=== PATIENT | female | born 1995 | race Caucasian/White ===

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

== ENCOUNTER 2017-07-18 20:08 | Emergency (ER) | payer BC, OTHER ==
[~2017-07-18] VITALS: Ht 160 cm; Wt 60.8 kg
[~2017-07-18 20:08] MED LIST: IBUPROFEN600 MG ORAL
[2017-07-18 20:20] VITALS: BP_SYST 124; BP_SYST 131; BP_DIAS 80; BP_DIAS 84
[2017-07-18] MEDS ORDERED: CLARITIN10 M2 ORAL (20:30)
--- NOTE | 2017-07-18 21:15 | Emergency Room Report ---
History of Present Illness General Chief Complaint: Earache Source: Patient Present Illness HPI Patient is a 22-year-old female who presented for earache intermittently for the past 2 days. Patient reported having prior history of seasonal allergies. She stated that pain began after some water was remaining in her ear after showering. She denies any fever. She denies sore throat. Patient reported having intermittent symptoms. She denies hearing loss or ringing in ears. Allergies: Coded Allergies: No Known Allergies (Unverified , 05/15/14) Patient History Past Medical History: see triage record Last Menstrual Period: 06/30/17 Now: No Reviewed Nursing Documentation: PMH: Agreed, PSxH: Agreed Nursing Documentation-PMH Past Medical History: No Stated History Review of Systems All Other Systems: negative except mentioned in HPI Physical Exam Vital Signs Date Time Temp Pulse Resp B/P (MAP) Pulse Ox O2 Delivery O2 Flow Rate FiO2 07/18/17 20:17 97.9 90 16 124/84 98 Room Air General Appearance: well appearing, no apparent distress, alert, GCS 15 Head: normocephalic, atraumatic ENT: hearing grossly normal, normal voice Neck: full range of motion, supple Respiratory: lungs clear, no respiratory distress, speaking full sentences Cardiovascular #1: normal peripheral pulses, regular rate, rhythm, no gallop Musculoskeletal: no calf tenderness Neurologic: normal gait Psychiatric: mood/affect normal Skin: no rash Medical Decision Making Diagnostic Impression: Primary Impression: Earache, left ER Course Patient presented for ear pain. Differential diagnosis included was not limited to otitis media, malignant otitis externa, foreign body, cellulitis, mastoiditis, carotid dissection, myocardial infarction among others. Patient' s benign exam and does not appear to require any further imaging or laboratory testing at this time. Patient was given prescription for Claritin. The patient appears to have some evidence of eustachian tube dysfunction.The patient is advised to follow up with primary care doctor in 1-2 days. Patient is advised to return if any worsening condition or if any changes in status that are concerning. Last Vital Signs Date Time Temp Pulse Resp B/P (MAP) Pulse Ox O2 Delivery O2 Flow Rate FiO2 07/18/17 20:20 97.9 90 16 124/84 98 Room Air Status: improved Disposition: HOME, SELF-CARE Condition: Stable Scripts Loratadine (CLARITIN) 10 Mg Capsule 10 MG ORAL DAILY, #30 CAP Prov: Sanya Hernandez 07/18/17 Patient Instructions: Earache Sanya Hernandez Jul 18, 2017 21:15
== END 2017-07-18 21:00 | disposition home or self-care (01) ==
LOC: EMR 20:35
DX: H92.02 Otalgia, left ear (principal)
CPT/HCPCS: 99283